=== PATIENT | female | born 1975 | race Caucasian/White ===

== ENCOUNTER → 2018-04-26 | Outpatient (CLI) | payer OTHER ==
[~2018-04-26] MED LIST: ESCITALOPRAM OX20 MG PO; LURA120T PO; OXYC-323 PO
--- NOTE | 2018-04-26 14:40 | RAD ---
Limited obstetrical ultrasound History: No heart tones in doctor's office Comparison: None. Findings: Multiple transabdominal sonographic images of the pelvis are submitted. There is a single intrauterine gestational sac with identifiable pole although no demonstrable cardiac activity on M-mode analysis or color Doppler imaging. Amniotic fluid volume is considered within normal limits. Uterus measured 8 x 9 x 7 cm. no free fluid is demonstrated. Monona-rump length measurement of 2.41 cm corresponds with 9 weeks 1 day. Adjusted ultrasound age is 9 weeks 1 day with estimated delivery date of 11/28/2018. LMP age is 12 weeks 2 days with estimated delivery date of 11/06/2018. Ovaries are not demonstrated. Impression: 1. There is no demonstrable cardiac activity of the single intrauterine fetus despite adjusted ultrasound age of 9 weeks 1 day, evidence of demise. Electronically signed by: Darius Duffy MD (04/26/2018 2:36 PM) [id number]
== END | disposition home or self-care (01) ==
LOC: RAD 11:39
PROVIDERS: ATTEND Obstetrics & Gynecology
DX: O09.92 Supervision of high risk pregnancy, unspecified, second trimester (principal); O02.1 Missed abortion; Z3A.09 9 weeks gestation of pregnancy
CPT/HCPCS: 76815

== ENCOUNTER 2018-04-28 09:50 | Day surgery (SDC) | payer OTHER ==
[~2018-04-28] VITALS: Ht 165.1 cm; Wt 74.4 kg
[~2018-04-28 09:50] MED LIST changes: +CLINDAMYCIN 900MG PREMIX 50 ML IV PRN; +HYDROmorphone 2 MG/ML VIAL IV PRN; +IV RINGERS,LACTATED 1000ML 1,000 ML IV SCH; +LIDOCAINE 1% PF 2 ML VIAL. ID PRN; +MORPHINE SULFATE 2 MG/ML VIAL. IV PRN; +ONDANSETRON PF 4 MG/2 ML VIAL. IV PRN; -OXYC-323 PO; +PROCHLORPERAZINE 10 MG/2 ML VIAL. IV PRN; +fentaNYL PF VIAL 100 MCG/2 ML VIAL IV PRN
[2018-04-28] MEDS ORDERED: OXYTOCIN 10 UNIT/ML VIAL. ONE (11:03)
[2018-04-28] MEDS ORDERED: VASOPRESSIN 20 UNIT/ML VIAL. ONE (11:03)
[2018-04-28] MEDS ORDERED: PROPOFOL 20 ML IV ONE (12:02)
[2018-04-28] MEDS ORDERED: fentaNYL PF VIAL 100 MCG/2 ML VIAL ONE ×2 (12:02→13:13)
[2018-04-28] MEDS ORDERED: ONDANSETRON PF 4 MG/2 ML VIAL. ONE (12:02)
[2018-04-28] MEDS ORDERED: FAMOTIDINE 20 MG/2 ML VIAL ONE (12:02)
[2018-04-28] MEDS ORDERED: DEXAMETHASONE SOD PHOS 20 MG/5 ML VIAL. ONE (12:02)
[2018-04-28] MEDS ORDERED: MIDAZOLAM HCL/PF 2 MG/2 ML VIAL. ONE (12:03)
[2018-04-28] MEDS ORDERED: SEVOFLURANE 16 TO 30 MINUTES. IH ONE (12:48)
--- NOTE | 2018-04-28 12:55 | PDOC ---
BRIEF OPERATIVE NOTE Date: Apr 28, 2018 Pre-Op Diagnosis 9 wks Missed Post-Op Diagnosis SAme Procedure Performed Suction D&C Surgeon Dr. Carlson Anesthesia Type: General Blood Loss 200 ml Specimens Obtained POC Findings POC Complications none Operative Note see dictation LAMAR CARLSON Jr, MD Apr 28, 2018 12:55
--- NOTE | 2018-04-28 12:57 | DISCH ---
DISCHARGE INSTRUCTIONS Condition on Discharge Condition on Discharge: Stable Activity After Discharge Activity Instructions for Disc: Activity as tolerated Lifting Instructions after Dis: No heavy lifting Driving Instructions after Dis: Do not drive today Diet after Discharge Diet after Discharge: Regular Contacting the DRRosey after DC Call your doctor for: Concerns you may have Follow-Up Follow up with: Dr. Carlson in 1 week. LAMAR CARLSON Jr, MD Apr 28, 2018 12:57
--- NOTE | 2018-04-28 13:14 | OP ---
DATE OF SURGERY: PREOPERATIVE DIAGNOSIS: 9 weeks missed . POSTOPERATIVE DIAGNOSIS: 9 weeks missed . PROCEDURE: Suction D and C. SURGEON: Rakesh Carlson MD ANESTHESIA: GETA. ESTIMATED BLOOD LOSS: 200 mL. COMPLICATIONS: None. FINDINGS: Products of conception. SUMMARY: A 43-year-old 5, para 4, was found to have a 9 weeks missed confirmed by 2 ultrasounds. The patient was counseled on the risks, benefits and expectations of suction D and C and voiced clear understanding to proceed. DESCRIPTION OF PROCEDURE: The patient was taken to surgery suite, placed in dorsal lithotomy position, was prepped with Betadine solution and draped in a sterile fashion. After adequate anesthesia, weighted speculum and curved [place] placed vaginally. The anterior lip of the cervix was grasped with a single tooth tenaculum. The cervix was then dilated with Hegar dilators up to size 11. The curved tip suction curette was then passed at a pressure of 50 cmHg and rotated in a circumferential manner, removing products of conception, tissue and blood products. Sharp curettage took place until a fine gritty surface was palpated. Suction curette was then passed once again to remove additional products of conception and blood products. The single tooth tenaculum and weighted speculum were removed. The patient tolerated the procedure well and was taken to recovery room in stable condition. Sponge and needle count correct x 3. RAKESH CARLSON MD DR: ALBINO/danae JOB#: [id number] / [id number]
[2018-04-28] MEDS: fentaNYL PF VIAL 100 MCG/2 ML VIAL IV PRN ×2 (13:18→13:42)
[2018-04-28] MEDS ORDERED: OXYC-323 PO (13:40)
[2018-04-28] MEDS ORDERED: oxyCODONE/APAP 5/325 1 TAB TABLET PO ONE (13:45)
[2018-04-28 13:57] VITALS: BP 111/70
--- NOTE | 2018-05-02 09:06 | PATHOLOGY ---
[facility] Accession Number: [id number] . 01 Material submitted: . PRODUCTS OF CONCEPTION . 01 Clinical history: . Missed . . 02 Diagnosis: Uterine contents, suction D and C: - Products of conception comprised of segments of tissue, placental membranous tissue, immature chorionic villi showing focal degenerative changes, and segments of decidual tissue and secretory endometrium showing focal necrosis, hemorrhage, and acute inflammation. (JPM/db; 04/29/18) LBQ/04/29/2018 . 02 Electronically signed: . Ponce Rolle MD, Pathologist NPI- [id number] . 01 Gross description: . Received in formalin labeled "Nicole Benavides, product of conception" is a 17 g, 5.5 x 5.5 x 2.0 cm aggregate of red-warner soft tissue and red-brown clotted blood. No parts are identified. [employer] sections of the soft tissue are submitted in cassettes A1-A3. ([facility] [place]; 04/28/2018) SYC/SYC . 02 Pathologist provided ICD-10: O02.89 . 02 CPT . 710336 Specimen Comment: A courtesy copy of this report has been sent to Specimen Comment: [phone]. Specimen Comment: Report sent to Performed at: 01 [facility] [address], [place] [id number] MD Emmanuel Kimble MD Phone: [phone] Performed at: [facility] [address], [place] [id number] MD Ponce Rolle MD Phone: [phone]
== END 2018-04-28 14:24 | disposition home or self-care (01) ==
LOC: SURG 09:50
PROVIDERS: ATTEND Obstetrics & Gynecology
DX: O02.1 Missed abortion (principal); F31.9 Bipolar disorder, unspecified; Z3A.09 9 weeks gestation of pregnancy; Z98.890 Other specified postprocedural states; Z72.89 Other problems related to lifestyle; Z79.899 Other long term (current) drug therapy
CPT/HCPCS: 59820; A7015; J1100; J2250; J2405; J2590; J2704; J3010; J3490; S0028; 88305